=== PATIENT | male | born 1975 | race Caucasian/White ===

== ENCOUNTER 2018-05-14 09:28 | Emergency (ER) | payer OTHER ==
--- NOTE | 2018-05-14 10:06 | ED ---
Upper Extremity Pain - HPI Summary HPI Summary: 42-year-old male presents with right shoulder injury on Monday. He states he was swinging a sledgehammer and on the third swing he felt a pop in his shoulder. He states that his walking and that he felt that his shoulder went back in place. He denies any previous dislocations of the shoulder. He states he has numbness and tingling at the initial incident but has not had any since. He states he limited range of motion for the past couple days. ROM has been increasing. Denies any other injury. He states he has history of shoulder issues. He is right-handed. 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 - History of Current Complaint Chief Complaint: Renae Stated Complaint: RT SHOULDER INJURY Time Seen by Provider: 05/14/18 09:34 - Allergies/Home Medications Allergies/Adverse Reactions: Allergies Allergy/AdvReac Type Severity Reaction Status Date / Time quell Allergy Mild Rash Uncoded 09/04/13 11:30 Home Medications: Home Medications NK [No Home Medications Reported] 05/14/18 [History Confirmed 05/14/18] PMH/Surg Hx/FS Hx/Imm Hx Endocrine/Hematology History: Denies: Hx Anticoagulant Therapy Cardiovascular History: Denies: Hx Myocardial Infarction Infectious Disease History: No Infectious Disease History: Denies: Traveled Outside the [place] in Last 30 Days - Family History Known Family History: Positive: Hypertension - Social History Alcohol Use: None Substance Use Type: Reports: None Smoking Status (MU): Light Every Day Tobacco Smoker Review of Systems Negative: Fever Negative: Chest Pain Negative: Shortness Of Breath Positive: Myalgia - right shoulder pain All Other Systems Reviewed And Are Negative: Yes Physical Exam Triage Information Reviewed: Yes Vital Signs On Initial Exam: Initial Vitals Temp Pulse Resp BP Pulse Ox 98 F 60 16 145/102 98 05/14/18 09:31 05/14/18 09:31 05/14/18 09:31 05/14/18 09:31 05/14/18 09:31 Vital Signs Reviewed: Yes Appearance: Positive: Well-Appearing Skin: Positive: Warm, Dry Head/Face: Positive: Normal Head/Face Inspection Eyes: Positive: Normal, Conjunctiva Clear ENT: Positive: Pharynx normal Respiratory/Lung Sounds: Positive: Clear to Auscultation, Breath Sounds Present Cardiovascular: Positive: Normal, RRR Musculoskeletal: Positive: Limited @ - right shoulder, Other - tenderness right anterior shoulder, good pulses, 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 - Radiology shoulder Xray Interpretation: No Acute Changes Radiology Interpretation Completed By: Radiologist Course/Dx - Course Course Of Treatment: 42-year-old male presents with right shoulder injury on Monday. He states he was swinging a sledgehammer and on the third swing he felt a pop in his shoulder. He states that his walking and that he felt that his shoulder went back in place. He denies any previous dislocations of the shoulder. He states he has numbness and tingling at the initial incident but has not had any since. He states he limited range of motion for the past couple days. ROM has been increasing. Denies any other injury. Has tenderness over right anterior shoulder. Full passive range of motion. Neurovascularly intact. X-ray shows no fracture dislocation. Gave sling. We' ll follow-up with orthopedic. Patient understands agrees the plan. - Diagnoses Differential Diagnosis/HQI/PQRI: Positive: Fracture (Closed), Strain, Sprain Provider Diagnoses: Right shoulder pain Discharge - Sign-Out/Discharge Documenting (check all that apply): Patient Departure - Discharge Plan Condition: Good Disposition: HOME Patient Education Materials: Shoulder Pain (ED) Referrals: No Primary Care Phys,MARNIECP [Medical Doctor] - Sammy Herrera MD [Medical Doctor] - Additional Instructions: Keep in sling Take Tylenol and ibuprofen every 6 hours as needed for pain Ice/heat Follow up with ortho Return to ED if develop any new or worsening symptoms - Billing Disposition and Condition Condition: GOOD Disposition: Home
--- NOTE | 2018-05-14 10:12 | RAD ---
INDICATION: Right shoulder pain COMPARISON: None. TECHNIQUE: 4 views of the right shoulder were obtained. FINDINGS: The adequately corticated bones are in normal alignment. Joint spaces appear maintained. No fracture, dislocation or focal bony abnormality is seen. IMPRESSION: Normal radiograph of the right shoulder. If the patient's symptoms persist, follow-up imaging is recommended.
[2018-05-14 10:59] VITALS: BP 134/88
== END 2018-05-14 10:58 | disposition home or self-care (01) ==
LOC: ED 09:28
DX: M25.511 Pain in right shoulder (principal); X50.0XXA Overexertion from strenuous movement or load, initial encounter; Y92.9 Unspecified place or not applicable; F17.200 Nicotine dependence, unspecified, uncomplicated
CPT/HCPCS: 99282

== ENCOUNTER 2018-07-06 16:44 | Emergency (ER) | payer OTHER ==
[2018-07-06 16:55] VITALS: BP 130/83
--- OUTSIDE RECORDS SUMMARY | 2018-07-06 17:04 | XMS REPORT ---
:1975 External Reference #:[id number] Author Organization [facility] Address [address] [place] [address] [place] [address] Phone [phone] Care Team Providers Name Role Phone Malcom Gil MD Primary Care Physician Unavailable Payers Type Date Identification Numbers Payment Provider Subscriber Commercial Policy Number: [id number] [employer] Name: [id number] [address] PayID: [id number] [place] [address] Problems Date Description Provider Status Onset: 05/17/2018 Closed anterior dislocation of humerus Sammy Herrera MD Active Family History Date Family Member(s) Problem(s) Comments General Diabetes General Hypertension General Parkinson's Disease Social History Type Date Description Comments Lives With Mother Occupation Unemployed ETOH Use Denies alcohol use Smoking Patient is a former smoker Exercise Type/Frequency Exercises regularly Allergies, Adverse Reactions, Alerts Date Description Reaction Status Severity Comments 05/17/2018 NKDA active Medications Medication Date Status Form Strength Qnty SIG Indications Ordering Provider Vitamin C Active Chewtabs 500mg 2 by Unknown Immune Health 00 mouth every day Vitamin B12 TR Active Tablets ER 1000mcg 1 by Unknown 00 mouth every day Magnesium Active Tablets 27.5mg 1 by Unknown Gluconate 00 mouth every day Nicotine Active Gum 2mg 1 piece Unknown 00 every 2 hours as needed. Chantix Active Tablets 1mg 1 by Unknown 00 mouth twice a day Omeprazole Active Capsules DR 20mg 1 by Unknown 00 mouth every day Vital Signs Date Vital Result Comment 06/07/2018 Height 73 inches 6'1" Weight 254.00 lb Heart Rate 60 /min BP Systolic Sitting 124 mmHg BP Diastolic Sitting 84 mmHg Respiratory Rate 16 /min Pain Level 1 BMI (Body Mass Index) 33.5 kg/m2 05/17/2018 Height 73 inches 6'1" Weight 254.00 lb Heart Rate 65 /min BP Systolic 123 mmHg BP Diastolic 88 mmHg Body Temperature 96.4 F Pain Level 4 BMI (Body Mass Index) 33.5 kg/m2 05/16/2018 Height 73 inches 6'1" Weight 255.00 lb BMI (Body Mass Index) 33.6 kg/m2 Results Description No Information Procedures Description No Information Encounters Type Date Location Provider CPT E/M Dx Office Visit 06/07/2018 [facility] [place] [address] S43.014D 3:15p C.M.A. M75.41 Office Visit 05/17/2018 10:00a [facility] [place] [address] S43.014A C.M.A. Plan of Care 06/07/2018 - Sammy Herrera, MDS43.014D Anterior dislocation of right humerus, subsequent encounterNew Xrays:MRI Shoulder Arthrogram RightwComments:google and do rotator cuff exercisesFollow up:Follow up: after MRIM75.41 Impingement syndrome of right shoulder
[2018-07-06] MEDS ORDERED: Fluorescein Sod TOPICAL 0.6* 0.6 MG TEST OPHTHALMIC ONE (18:38)
[2018-07-06] MEDS ORDERED: Tetracaine 0.5% OPTH.SOL 4 ML* 1 DROP BTL ONE (18:38)
[2018-07-06] MEDS ORDERED: Polymyx/Trimethoprim OPTH* 10 ML BTL RIGHT EYE ONE (19:04)
--- NOTE | 2018-07-06 19:05 | ED ---
Throat Pain/Nasal Congestion - HPI Summary HPI Summary: 43-year-old male presents with right eye pain today. He states he got something into his eye. He states that it feels like something is near the upper lid. He does not wear contacts or glasses. He was wearing safety glasses when this occurred. He was sawing wood. He believes his tetanus up-to- date. Has no medical conditions. No change in vision. He admits to some tearing. He states he tried to flush area but has had no relief. - History of Current Complaint Chief Complaint: EDEyeProblem Time Seen by Provider: 07/06/18 18:27 - Allergies/Home Medications Allergies/Adverse Reactions: Allergies Allergy/AdvReac Type Severity Reaction Status Date / Time quell Allergy Mild Rash Uncoded 07/06/18 16:52 PMH/Surg Hx/FS Hx/Imm Hx Endocrine/Hematology History: Denies: Hx Anticoagulant Therapy, Hx Diabetes Cardiovascular History: Denies: Hx Hypertension, Hx Myocardial Infarction, Hx Pacemaker/ICD History: Denies: Hx Renal Disease Sensory History: Denies: Hx Hearing Aid Psychiatric History: Denies: Hx Panic Disorder - Surgical History Surgery Procedure, Year, and Place: 07/2017 INGUINAL HERNIA-12/03 MID ABDOMINAL HERNIA REPAIR. [id number] TO HAVE CENTRAL LINE. CLEFT LIP REPAIR Infectious Disease History: No Infectious Disease History: Denies: Traveled Outside the US in Last 30 Days - Family History Known Family History: Positive: Hypertension - Social History Alcohol Use: None Substance Use Type: Reports: None Smoking Status (MU): Light Every Day Tobacco Smoker Review of Systems Negative: Fever Positive: Other - eye pain Negative: Chest Pain Negative: Shortness Of Breath All Other Systems Reviewed And Are Negative: Yes Physical Exam Triage Information Reviewed: Yes Vital Signs On Initial Exam: Initial Vitals Temp Pulse Resp BP Pulse Ox 98.3 F 128 14 130/83 100 07/06/18 16:52 07/06/18 16:52 07/06/18 16:52 07/06/18 16:52 07/06/18 16:52 Vital Signs Reviewed: Yes Appearance: Positive: Well-Appearing Skin: Positive: Warm, Dry Head/Face: Positive: Normal Head/Face Inspection Eyes: Positive: Normal, EOMI, BENNETT, Other: - 2mm uptake on 1 position of right eye, no foreign body seen ENT: Positive: Normal ENT inspection, Pharynx normal, TMs normal Respiratory/Lung Sounds: Positive: Clear to Auscultation, Breath Sounds Present Cardiovascular: Positive: Normal, RRR Musculoskeletal: Positive: Normal Neurological: Positive: Normal Psychiatric: Positive: Normal Procedures - Eye Procedure Right Alcaine Drops Administered: Yes - 2mm uptake on fluorscein exam at 1 position Eye Irrigated w/ Saline (ccs): 500 Diagnostics - Vital Signs Vital Signs Temp Pulse Resp BP Pulse Ox 07/06/18 16:52 98.3 F 128 14 130/83 100 - Laboratory Lab Statement: Any lab studies that have been ordered have been reviewed, and results considered in the medical decision making process. EENT Course/Dx - Course Course Of Treatment: 43-year-old male presents with right eye pain today. He states he got something into his eye. He states that it feels like something is near the upper lid. He does not wear contacts or glasses. He was wearing safety glasses when this occurred. He was sawing wood. He believes his tetanus up-to-date. Has no medical conditions. No change in vision. He admits to some tearing. He states he tried to flush area but has had no relief. On exam hands 2 mm uptake of fluorescein exam 1 o'clock position. Had patient use the eye irrigation afterwards. We'll place on Polytrim. Gave referral to optho if no improvement. Patient understands agrees with plan. - Differential Diagnoses Differential Diagnoses: Conjunctivitis, Corneal Abrasion, Foreign Body - Diagnoses Provider Diagnoses: Corneal abrasion Discharge - Sign-Out/Discharge Documenting (check all that apply): Patient Departure - Discharge Plan Condition: Good Disposition: HOME Patient Education Materials: Corneal Abrasion (ED) Referrals: Malcom Gil MD [Primary Care Provider] - Lucian Camargo MD [Medical Doctor] - Additional Instructions: Place 1 drop in eye 4 times a day for 5 days Use artificial tears or saline to rinse eye for symptomatic relief Take Tylenol or ibuprofen for pain Follow up with ophthalmology if no improvement in 5 days Return to ED if develop any new or worsening symptoms - Billing Disposition and Condition Condition: GOOD Disposition: Home
== END 2018-07-06 19:43 | disposition home or self-care (01) ==
LOC: ED 16:44
DX: S05.01XA Injury of conjunctiva and corneal abrasion without foreign body, right eye, initial encounter (principal); H57.11 Ocular pain, right eye; F17.210 Nicotine dependence, cigarettes, uncomplicated; X58.XXXA Exposure to other specified factors, initial encounter; Y92.9 Unspecified place or not applicable
CPT/HCPCS: 99282; A9270-GY

== ENCOUNTER → 2018-07-28 10:27 | Emergency (ER) | payer OTHER ==
--- OUTSIDE RECORDS SUMMARY | 2018-07-28 10:42 | XMS REPORT ---
:1975 Author Organization [facility] Address [address] [place] [address] Care Team Providers Name Role Phone Malcom Gil Unavailable Unavailable PROBLEMS ALLERGIES No Information ENCOUNTERS IMMUNIZATIONS No Known Immunizations SOCIAL HISTORY No smoking Hx information available REASON FOR REFERRAL FUNCTIONAL STATUS PLAN OF CARE VITAL SIGNS MEDICATIONS Unknown Medications PROCEDURES No Known procedures RESULTS No Results REASON FOR VISIT Insurance Providers MEDICAL (GENERAL) HISTORY
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
--- NOTE | 2018-07-28 11:35 | ED ---
Throat Pain/Nasal Congestion - HPI Summary HPI Summary: He shouldn't is a 43-year-old male who presents emergency department for dental pain times several days. Patient states he occasionally gets infection to his right bottom developed pain a few days ago. Patient states area. On and irritated. He denies facial swelling, fever, vomiting. He has no past medical history. He states he usually takes an antibiotic and symptoms improved. Symptoms are mild in severity. Touching affected area and eating makes symptoms worse. Tylenol and Motrin makes symptoms better. - History of Current Complaint Chief Complaint: EDDentalPain Time Seen by Provider: 07/28/18 11:22 Hx Obtained From: Patient - Allergies/Home Medications Allergies/Adverse Reactions: Allergies Allergy/AdvReac Type Severity Reaction Status Date / Time quell Allergy Mild Rash Uncoded 07/28/18 10:33 PMH/Surg Hx/FS Hx/Imm Hx Previously Healthy: Yes Endocrine/Hematology History: Denies: Hx Anticoagulant Therapy, Hx Diabetes Cardiovascular History: Denies: Hx Hypertension, Hx Myocardial Infarction, Hx Pacemaker/ICD History: Denies: Hx Renal Disease Sensory History: Denies: Hx Hearing Aid Psychiatric History: Denies: Hx Panic Disorder - Surgical History Surgery Procedure, Year, and Place: 07/2017 INGUINAL HERNIA-12/03 MID ABDOMINAL HERNIA REPAIR. [id number] TO HAVE CENTRAL LINE. CLEFT LIP REPAIR Infectious Disease History: No Infectious Disease History: Denies: Traveled Outside the [place] in Last 30 Days - Family History Known Family History: Positive: Hypertension - Social History Occupation: Employed Full-time Lives: With Family Alcohol Use: None Substance Use Type: Reports: None Smoking Status (MU): Light Every Day Tobacco Smoker Review of Systems Constitutional: Negative Negative: Fever, Chills Positive: Dental Pain Gastrointestinal: Negative Negative: Vomiting, Nausea All Other Systems Reviewed And Are Negative: Yes Physical Exam Triage Information Reviewed: Yes Vital Signs On Initial Exam: Initial Vitals Temp Pulse Resp BP Pulse Ox 96.8 F 70 16 144/86 99 07/28/18 10:34 07/28/18 10:34 07/28/18 10:34 07/28/18 10:34 07/28/18 10:34 Vital Signs Reviewed: Yes Appearance: Positive: Well-Appearing - Patient sitting in chair in no acute distress. Skin: Positive: Warm, Dry Head/Face: Positive: Normal Head/Face Inspection Eyes: Positive: Normal, EOMI ENT: Positive: TMs normal Dental: Positive: Other - Mild swelling and redness and pain around right bottom last molar. No drainable abscess. No facial swelling. No trismus or submandibular edema. Neck: Positive: Supple, Nontender, No Lymphadenopathy Neurological: Positive: Normal, CN Intact II-III Psychiatric: Positive: Affect/Mood Appropriate Diagnostics - Vital Signs Vital Signs Temp Pulse Resp BP Pulse Ox 07/28/18 10:34 96.8 F 70 16 144/86 99 - Laboratory Lab Statement: Any lab studies that have been ordered have been reviewed, and results considered in the medical decision making process. EENT Course/Dx - Course Course Of Treatment: Will start patient on penicillin. Advised Tylenol or Motrin for pain as directed. To call dentist on Monday for close up appointment. Return to the ear symptoms change or worsen. - Differential Diagnoses Differential Diagnoses: Dental Abscess, Dental Caries - Diagnoses Provider Diagnoses: Dentalgia Discharge - Sign-Out/Discharge Documenting (check all that apply): Patient Departure - Discharge Plan Condition: Good Disposition: HOME Prescriptions: Penicillin VK 500 MG TAB(NF) [Penicillin VK 500 mg Tab] 500 mg PO QID #40 tab Patient Education Materials: Toothache (ED) Referrals: Malcom Gil MD [Primary Care Provider] - Additional Instructions: Schedule an appointment with a dentist Take antibiotic as directed Tylenol or Motrin for pain as directed Return to ER if symptoms change or worsen - Billing Disposition and Condition Condition: GOOD Disposition: Home
[2018-07-28 11:46] VITALS: BP 117/77
== END | disposition home or self-care (01) ==
LOC: ED 10:27
DX: K08.89 Other specified disorders of teeth and supporting structures (principal); F17.200 Nicotine dependence, unspecified, uncomplicated
CPT/HCPCS: 99282

== ENCOUNTER 2018-08-27 06:17 | Day surgery (SDC) | payer OTHER ==
--- NOTE | 2018-08-13 03:48 | HP ---
AMENDED REPORT NOW INCLUDES DESIGNATED COSIGNER PREOPERATIVE HISTORY AND PHYSICAL: DATE OF SURGERY: 08/27/18 DATE OF OFFICE VISIT: 08/09/18 ATTENDING SURGEON: Dr. Sammy Herrera.* (DICTATED BY GUSTAVO LIANG) PROCEDURE: Right shoulder arthroscopic rotator cuff repair, decompression, debridement, subpectoral biceps tenodesis, possible labral repair, and subscapularis repair. CHIEF COMPLAINT: Right shoulder pain. HISTORY OF PRESENT ILLNESS: Gibran is a 43-year-old male, who presents to clinic for right shoulder pain due to a rotator cuff tear, biceps tendonitis, and labral tear. He has failed conservative measures and therefore agreed to undergo right shoulder arthroscopic rotator cuff repair, decompression, debridement, subpectoral biceps tenodesis, possible labral repair, and subscapularis repair with Dr. Herrera on 08/27/18. PAST MEDICAL HISTORY: GERD, alcohol addiction, and recent drug addiction and abuse, and wisdom tooth infection. He recently finished penicillin. PAST SURGICAL HISTORY: Central line opening in 2001, hernia repair in 2017, 2018, and cleft palate surgery. The patient denies prior complications with anesthesia. MEDICATIONS: 1. Vitamin C 500 mg 2 by mouth every day. 2. Vitamin B12 1000 mcg 1 by mouth every day. 3. Magnesium gluconate 27.5 mg 1 by mouth every day. 4. Nicotine 2 mg 1 piece every 2 hours as needed. 5. Chantix 1 mg by mouth twice a day. 6. Omeprazole 20 mg 1 by mouth every day. ALLERGIES: No known drug allergies. FAMILY HISTORY: Positive for diabetes, hypertension, Parkinson. SOCIAL HISTORY: He is a former smoker, quit 2 months ago. He denies alcohol use. He is now sober. He denies illegal drug use. He does have a history of cocaine abuse. He is right hand dominant. REVIEW OF SYSTEMS: A 14-point review of systems was reviewed with the patient. Positive for current complaint, otherwise negative. Denies fever, chills, chest pain, shortness of breath, history of bleeding disorder, history of DVT or PE. PHYSICAL EXAMINATION GENERAL: A 43-year-old, well-developed, well-nourished male, in no acute distress. Alert and oriented x3. Appropriate mood and affect. Appropriate balance and coordination of the upper and lower extremities. VITAL SIGNS: Height 73, weight 241, pulse 68, blood pressure 134/84, respiratory rate 16, temperature 96.9, BMI 31.8. HEENT: Normocephalic, atraumatic. PERRLA. Throat: Clear. NECK: Supple. PULMONARY: Lungs are clear to auscultation bilaterally. No wheezing, rhonchi or rales. CARDIO: Regular rate and rhythm. S1, S2. No murmurs, gallops or rubs. No edema. ABDOMEN: Positive bowel sounds, soft, nontender. NEURO: Alert and oriented x3. Cranial nerves grossly intact. Sensation is intact to light touch. MUSCULOSKELETAL: Right upper extremity, skin is intact. No warmth or erythema. Forward flexion, abduction to 160, external rotation to 55. Full range of motion of the elbow, wrist, and hand. Positive impingement with Speeds , May-Bill, and Roberta. +2 radial pulse. Sensation intact to light touch distally. Pain and weakness to rotator cuff testing. Neurovascularly intact. DIAGNOSTIC STUDIES/LAB DATA: MR arthrogram revealed full-thickness retracted tear of the supraspinatus tendon and tear of the subscapularis, superior labral tear with small amount of arthritis. IMPRESSION: Right shoulder rotator cuff tear, biceps tendonitis, and labral tear. PLAN/RECOMMENDATIONS: The patient is scheduled to undergo a right shoulder arthroscopic rotator cuff repair, decompression debridement, subpectoral biceps tenodesis, possible labral repair, and subscapularis repair with Dr. Herrera on 08/27/18. He will follow up in 10 to 14 days postop for suture removal, Tylenol around the clock, ibuprofen, and tramadol will be used for postop pain control since he has a history of drug abuse. We will limit the tramadol refills. Tramadol was sent to the patient's pharmacy to be picked up the day of surgery. I- STOP was checked and as expected. GUSTAVO LIANG [id number]/[facility] #: [id number] [facility] HOSPITALMar[facility]
[~2018-08-27 06:17] MED LIST: Buffered Lidocaine 0.9% SYRIN* 5 ML/SYR SYRINGE INTRADERM ONE
[2018-08-27] MEDS ORDERED: ceFAZolin 2 GM PREMIX in ORs 2 GM/50 ML BAG IVPB ONE (06:27)
[2018-08-27] MEDS ORDERED: Bupivacaine 0.25% SDV* 30 ML ONE (07:12)
[2018-08-27] MEDS ORDERED: fentaNYL* 50 MCG/ML 2 ML VIAL (100 MCG VIAL) ONE (07:30)
[2018-08-27] MEDS ORDERED: Midazolam* 1 MG/ML 2 ML VIAL (2 MG) ONE (07:30)
[2018-08-27] MEDS ORDERED: Bupivacaine 0.5% W/EPI SDV* 30 ML VIAL ONE (07:33)
[2018-08-27] MEDS ORDERED: PROCHLORPERAZINE INJ 5 MG/ML 2 ML VIAL IV PRN (08:43)
[2018-08-27] MEDS ORDERED: Naloxone* 0.4 MG/ML 1 ML VIAL IV PRN (08:43)
[2018-08-27] MEDS ORDERED: Metoclopramide IV* 5 MG/ML 2 ML VIAL IV PRN (08:43)
[2018-08-27] MEDS ORDERED: Scopolamine 1.5 mg* PATCH TRANSDERM PRN (08:43)
[2018-08-27] MEDS ORDERED: Propofol* 10 MG/ML 20 ML BTL IV PUSH ONE (09:32)
[2018-08-27] MEDS ORDERED: Ondansetron INJ* 2 MG/ML VIAL ONE (09:32)
[2018-08-27] MEDS ORDERED: Dexamethasone IV* 4 MG/ML 1 ML (4 MG) ONE (09:32)
[2018-08-27] MEDS ORDERED: Lidocaine 2% PF * 5 ML VIAL ONE (09:32)
[2018-08-27] MEDS ORDERED: Metoclopramide IV* 5 MG/ML 2 ML VIAL ONE (10:00)
[2018-08-27] MEDS ORDERED: Scopolamine 1.5 mg* PATCH ONE (10:00)
[2018-08-27] MEDS ORDERED: PROCHLORPERAZINE INJ 5 MG/ML 2 ML VIAL ONE ×2 (10:15→10:17)
[2018-08-27 11:07] VITALS: BP 120/62
--- NOTE | 2018-08-27 23:19 | OP ---
CC: PCP, Malcom Gil MD * DATE OF OPERATION: 08/27/18 - [facility] DATE OF : 75 SURGEON: Sammy Herrera MD TACKING MACHINE OPERATOR: GUSTAVO Leiva. An virtual office assistant was needed for the entirety of the case to help with positioning, retraction, and was utilized throughout all portions of the case. ANESTHESIOLOGIST: Dr. Stephens. ANESTHESIA: General with interscalene block. PRE-OP DIAGNOSES: Right shoulder complete tear of the supraspinatus, right shoulder instability, and superior labral tearing. POST-OP DIAGNOSES: Right shoulder tear of the supraspinatus, part of the infraspinatus as well as proximal 25% of the subscapularis; previous biceps rupture and anterior instability with an intact anterior labrum. OPERATIVE PROCEDURE: 1. Right shoulder arthroscopy with extensive glenohumeral debridement including chondroplasty and debridement of the anterior, posterior, and superior labrum. 2. Arthroscopic repair of subscapularis. 3. Rotator cuff repair of the supraspinatus and part of the infraspinatus in a double-row fashion with augmentation of Regeneten patch. 4. Decompression and debridement. INDICATIONS: Gibran Moore is a 43-year-old male, who presented with a right shoulder dislocation with rotator cuff tear. He has failed conservative management and he is 43 years old, diagnosed with a full-thickness tear of his supra and infraspinatus tendons as well as partial-thickness tear of the subscap. He also damaged his superior labrum. Risks and benefits of surgery were discussed at length and included, but not limited to, bleeding; infection; damage to nerves, vessels, surrounding structures; wound nonhealing; persistent pain; need for surgery; scarring; stiffness; incomplete relief of symptoms; risks of anesthesia. COMPLICATIONS: None. ESTIMATED BLOOD LOSS: Minimal. IMPLANTS USED: Two MultiFixes and two 4.75 Healicoils, 1 size medium Regeneten patch. DESCRIPTION OF PROCEDURE: The patient was greeted in the preoperative area by the attending surgeon. The correct extremity was marked and consent was confirmed. The patient was brought back to the operating suite where he was placed in the supine position on the operating table. He then underwent interscalene nerve block and then under-went general anesthesia with endotracheal intubation, after which he was placed in left lateral decubitus position. All bony prominences were padded. He was secured with a peg board and an axillary roll. The right shoulder was prepped and draped in usual sterile fashion beginning with chlorhexidine soap, scrub, and alcohol wipe, and a final prep with ChloraPrep. After appropriate surgical pause indicating site, side, procedure, administration of antibiotics, the scope was positioned to the posterolateral portal. There was abundant synovitis and erythema present. There was evidence of superior labral tear. The anterior labrum was intact. There was a Hill- Sachs deformity that was very shallow. The posterior labrum had some mild fraying. Inferior recess was intact. There were some grade 0 to 1 changes to the humeral head aside from Hill-Sachs and grade 1 to 2 changes of the glenoid. The shaver was used to debride back the unstable chondral flaps as well as the anterior, posterior, and superior labrum. There was evidence of full- thickness rotator cuff tear and the subscap was difficult to visualize, but once the anterior portal was made in an outside-in fashion, the shaver was used to debride back the anterior, posterior, superior labrum, as well as do a chondroplasty. The synovitis was addressed in part with an electrocautery device with care to use it just for visualization purpose and avoid the joint surface itself. This revealed that there was proximal 30% of the subscap was torn. At this point, the scope was positioned in the subacromial space. The scope was in the subacromial space and the lateral portal was then made in an [id number]. Shaver and electrocautery device were then used to debride back the abundant synovitis. There was a hooked acromion that was present. The 4-0 oval bur was then used to do an acromioplasty to allow for more room for the rotator cuff. The CA ligament was released. At this point, excess debris was removed. Attention was directed to the rotator cuff. There was a full-thickness tear of the supraspinatus tendon. There was also a split down the infraspinatus tendon and incorporated part of the infraspinatus between the supra and the infraspinatus tendon. The cuff tissue was then carefully mobilized. The subscap was identified and there was evidence of high- grade tearing of the footprint; therefore, the decision was made to repair this. The lesser tuberosity was then prepared in the usual fashion. A suture tape was then passed through in a simple configuration, then passed through a MultiFix for knotless fixation of the subscap. This helped to reapproximate the subscap. It also helped to bring the supraspinatus tear back towards the level of the greater tuberosity. The supra-spinatus was retracted otherwise almost to the level of the glenoid. At this point, the free suture was then passed through the supra and infraspinatus tendon, also for [id number] repair. Again, this helped to change it from an L-shaped tear to a U-shaped tear. At this point, the greater tuberosity was prepared in the usual fashion with a rasp as well as a 4-0 oval bur to gently decorticate. The two 4.75 Healicoils were then placed about the medial row and then the sutures were passed through the tendon in a horizontal mattress configuration, then tied down using arthroscopic knot tying technique. The sutures were then brought through a MultiFix anchor which was then placed for lateral row fixation. This helped to reapproximate the rotator cuff to the footprint. At this point, because of the patient's young age, the Regeneten patch was then thought to act as an augment for healing. It was brought to the field, then placed. Medium size patch was then placed over the previously repaired cuff and secured with tendon sutures, then bone sutures. The final images were obtained. The wounds were copiously irrigated with sterile saline. The portals were closed with 3-0 nylon. Sterile dressings were applied. He was awoken from anesthesia and transferred to PACU in stable condition. POSTOPERATIVE PLAN: He will be nonweightbearing. He will be in a sling for 6 weeks. He will be discharged on pain medications. DVT prophylaxis considered but deferred due to no previous personal or family history. I will see the patient back in 10 to 14 days. [id number]/[facility] #: [id number] Wendy- [id number]/[facility] #: [id number] EMILY
--- NOTE | 2018-08-28 00:17 | OP ---
CC: PCP OPERATIVE REPORT: ADDENDUM: DESCRIPTION OF PROCEDURE: After appropriate surgical pause indicating site, side, procedure, administration of antibiotics, the scope was positioned to the posterolateral portal. There was abundant synovitis and erythema present. There was evidence of superior labral tear. The anterior labrum was intact. There was a Hill-Sachs deformity that was very shallow. The posterior labrum had some mild fraying. Inferior recess was intact. There were some grade 0 to 1 changes to the humeral head aside from Hill-Sachs and grade 1 to 2 changes of the glenoid. The shaver was used to debride back the unstable chondral flaps as well as the anterior, posterior, and superior labrum. There was evidence of full-thickness rotator cuff tear and the subscap was difficult to visualize, but once the anterior portal was made in an outside-in fashion, the shaver was used to debride back the anterior, posterior, superior labrum, as well as do a chondroplasty. The synovitis was addressed in part with an electrocautery device with care to use it just for visualization purpose and avoid the joint surface itself. This revealed that there was proximal 30% of the subscap was torn. At this point, the scope was positioned in the subacromial space. The scope was in the subacromial space and the lateral portal was then made in an [id number]. Shaver and electrocautery device were then used to debride back the abundant synovitis. There was a hooked acromion that was present. The 4- 0 oval bur was then used to do an acromioplasty to allow for more room for the rotator cuff. The CA ligament was released. At this point, excess debris was removed. Attention was directed to the rotator cuff. There was a full-thickness tear. There was also a split down the infraspinatus tendon and incorporated part of the infraspinatus between the supra and the infraspinatus tendon. The cuff tissue was then carefully mobilized. The subscap was identified and there was evidence of high-grade tearing of the footprint; therefore, incision was made to repair this. The lesser tuberosity was then prepared in the usual fashion. A suture tape was then passed through in a simple configuration, then passed through a MultiFix for knotless fixation of the subscap. This helped to reapproximate the subscap. It also helped to bring the supraspinatus tear back towards the level of the greater tuberosity. The supraspinatus was retracted otherwise almost to the level of the glenoid. At this point, the free suture was then passed through the supra and infraspinatus tendon, also for [id number] repair. Again, this helped to change it from an L-shaped tear to a U-shaped tear. At this point, the greater tuberosity was prepared in the usual fashion with a rasp as well as a 4-0 oval bur to gently decorticate. The two 4.75 Healicoils were then placed about the medial row and then the sutures were passed through the tendon in a horizontal mattress configuration, then tied down using arthroscopic knot tying technique. The sutures were then brought through a MultiFix anchor which was then placed for lateral row fixation. This helped to reapproximate the rotator cuff. There was found to be to the footprint. At this point, because of the patient's young age, the Regeneten patch was then thought to act as an augment for healing. It was brought to the field, then placed. Medium size patch was then placed over the previously repaired cuff and secured with tendon sutures, then bone sutures. The final images were obtained. The wounds were copiously irrigated with sterile saline. The portals were closed with 3-0 nylon. Sterile dressings were applied. He was awoken from anesthesia and transferred to PACU in stable condition. POSTOPERATIVE PLAN: He will be nonweightbearing. He will be in a sling for 6 weeks. He will be discharged on pain medications. DVT prophylaxis considered but deferred due to no previous personal or family history. I will see the patient back in 10 to 14 days. [id number]/[facility] #: [id number] EMILY
== END 2018-08-27 10:59 | disposition home or self-care (01) ==
LOC: OREAST 06:17
PROVIDERS: ATTEND Orthopaedic Surgery
DX: S46.011A Strain of muscle(s) and tendon(s) of the rotator cuff of right shoulder, initial encounter (principal); S43.491A Other sprain of right shoulder joint, initial encounter; X58.XXXA Exposure to other specified factors, initial encounter; Y92.9 Unspecified place or not applicable; G89.18 Other acute postprocedural pain; Z87.891 Personal history of nicotine dependence; K21.9 Gastro-esophageal reflux disease without esophagitis
CPT/HCPCS: 88304; A9270-GY; C1713; J0690; J0780; J1100; J2250; J2405; J2704; J2765; J3010